=== PATIENT | female | born 1985 | race Caucasian/White ===

== ENCOUNTER 2016-08-23 14:56 | Inpatient (IN) | payer OTHER ==
[~2016-08-23] VITALS: Ht 167.6 cm; Wt 77.5 kg
[2016-08-23] MEDS ORDERED: LACTATED RINGER'S 1000ML 1,000 ML IV SCH (15:02)
[2016-08-23] MEDS ORDERED: LACTATED RINGER'S 1000ML 1,000 ML IV PRN (15:02)
[2016-08-23] MEDS ORDERED: PATIENT'S ALLERGY INFO NEEDS ENTERED SCH (15:15)
[2016-08-23 15:26] LABS: HEMATOCRIT 30.6 % (37-47); MEAN CELL VOLUME 78.1 fL (80-100); MEAN CORPUSCULAR HEMOGLOBIN 24.2 pg (25-34); MEAN PLATELET VOLUME 9.6 fL (7.4-10.4); PLATELET COUNT 280 K/uL (130-400); RED BLOOD COUNT 3.92 M/uL (4.2-5.4); WHITE BLOOD COUNT 9.02 K/uL (4.8-10.8)
[2016-08-23 15:28] VITALS: Ht 167.6 cm; Wt 77.5 kg
[2016-08-23] MEDS ORDERED: ESOM1CAP24 PO (15:31)
[2016-08-23] MEDS ORDERED: PRENTAB26 PO (15:31)
[2016-08-23] MEDS ORDERED: ACET-749 PO (15:31)
[2016-08-23] MEDS ORDERED: FERR1TAB23 PO (15:31)
[2016-08-23] MEDS ORDERED: FENTANYL CITRATE INJ 50 MCG/1 ML 2 ML VIAL ONE (15:39)
[2016-08-23] MEDS ORDERED: EpHEDrine SULFATE INJ 50 MG/ML AMP ONE (15:39)
[2016-08-23] MEDS ORDERED: FENTANYL 2MCG/ML ROPIV 1.25MG/ML 100ML BAG EPI ONE (15:39)
[2016-08-23] MEDS ORDERED: BUPIVACAINE 0.25% 30 ML VIAL ONE (15:39)
[2016-08-23] MEDS ORDERED: NALOXONE HCL INJ 1 MG in SODIUM CHLORIDE 0.9% 1000ML 1,000 ML IV PRN (16:34)
[2016-08-23] MEDS ORDERED: LACTATED RINGER'S 1000ML 500 ML IV PRN ×2 (16:34→16:58)
[2016-08-23] MEDS ORDERED: NALOXONE HCL INJ 0.4 MG/1 ML VIAL/CARP IV PRN (16:45)
[2016-08-23] MEDS ORDERED: NALBUPHINE HCL INJ 10 MG/ML AMP IV PRN (16:45)
[2016-08-23] MEDS ORDERED: FENTANYL 2MCG/ML ROPIV 1.25MG/ML 100ML BAG EPI PRN (16:45)
[2016-08-23] MEDS ORDERED: EpHEDrine SULFATE INJ 50 MG/ML AMP IV PRN (16:45)
[2016-08-23] MEDS ORDERED: ONDANSETRON INJ 2 MG/ML 2 ML VIAL IV PRN (16:45)
[2016-08-23] MEDS ORDERED: DiphenhydrAMINE HCL 50 MG/ML VIAL IV PRN (16:45)
[2016-08-23] MEDS ORDERED: OXYTOCIN 30 UNITS/500ML NSS IV PRN ×2 (17:00→18:45)
[2016-08-23] MEDS ORDERED: ACETAMINOPHEN/CODEINE 300/30MG TAB PO ONE (18:40)
[2016-08-23] MEDS ORDERED: BENZOCAINE 20% AER SPR 82.5 GM CAN EXT PRN (18:45)
[2016-08-23] MEDS ORDERED: RIZATRIPTAN BENZOATE 10 MG TAB PO PRN (18:45)
[2016-08-23] MEDS ORDERED: ACETAMINOPHEN/CODEINE 300/30MG TAB PO PRN (18:45)
[2016-08-23] MEDS ORDERED: LANOLIN OINT EXT PRN ×2 (18:45)
[2016-08-23] MEDS ORDERED: DIPHTHERIA/TETANUS/PERTUSSIS 0.5 ML SYR/VIAL IM. ONE (18:45)
[2016-08-23] MEDS ORDERED: SUPERCREAM 0.870 % 15GM JAR EXT PRN (18:45)
[2016-08-23] MEDS ORDERED: HYDROCORTISONE ACETATE 25 MG SUPP PR PRN (18:45)
[2016-08-23] MEDS ORDERED: ACETAMINOPHEN 325 MG TAB PO PRN (18:45)
--- NOTE | 2016-08-23 19:14 | Anesthesia Procedure Note ---
Anesthesia Epidural Removal Nt Date & Time Aug 23, 2016 at 19:13 Vital Signs Pain Intensity: 8.0 Notes Mental Status: alert / awake / arousable, participated in evaluation Nausea / Vomiting: adequately controlled Pain: adequately controlled Airway Patency, RR, SpO2: stable & adequate BP & HR: stable & adequate Hydration State: stable & adequate Neuraxial Anesthesia: was administered Anesthetic Complications: no major complications apparent, pt satisfied with anesthetic care Epidural: removed without complications, with tip intact
[2016-08-23] MEDS ORDERED: MEASLES, MUMPS & RUBELLA VIRUS VIAL SQ. ONE (20:00)
[2016-08-23 21:00] VITALS: BP 118/73; PULSE 95; TEMP 36.8
[2016-08-23] MEDS: DOCUSATE SODIUM 100 MG CAP PO SCH (21:11)
[2016-08-23] MEDS: IBUPROFEN 600 MG TAB PO PRN (21:16)
[2016-08-23] MEDS: ACETAMINOPHEN/CODEINE 300/30MG TAB PO PRN (22:20)
[2016-08-23 23:00] VITALS: BP 118/69; PULSE 68; TEMP 36.8; O2SAT 97
[2016-08-24] MEDS: IBUPROFEN 600 MG TAB PO PRN ×4 (01:13→19:07)
[2016-08-24 04:40] VITALS: BP 115/82; PULSE 90; TEMP 36.5; O2SAT 98
--- NOTE | 2016-08-24 05:40 | DELIVERY SUMMARY ---
DATE OF OPERATION: 08/23/2016 FINDINGS: Viable male with Apgars of 7 and 9, baby delivered spontaneously over midline second-degree laceration. Placenta delivered spontaneously. Laceration repaired with 4-0 Vicryl in routine fashion. Estimated blood loss 300 mL. LABOR NOTE: The patient is a 30-year-old, 7, para 3, with an EDC of 23 August at 40 weeks' gestational age. She was admitted in active labor. The patient states her contractions began at around 1000 hours on the day of delivery. She denied rupture of membranes or vaginal bleeding. The patient has had a benign course. Blood type is A positive, antibiotic negative, rubella non immune, hepatitis B negative. She declined to quad screen. She had normal 1 hour Glucola x2 and a negative third trimester beta strep culture. Upon admission the patient was 5-6 cm dilated, 80% effaced, -2 station. Tracing was category 2. Anesthesia was consulted and epidural was placed. Two hours later, the patient had no cervical change and contractions had spaced after the epidural. She had artificial rupture of membranes with clear fluid. Pitocin was initiated for the uterine contractions spacing out. Over the next hour, the patient progressed to full dilatation and began her second stage, pushed twice delivering the viable male infant. Cord was clamped and cut. Cord gases, cord blood samples were obtained. Placenta delivered spontaneously. Inspection of the perineum showed a small midline laceration repaired with a running 4-0 Vicryl stitch. Estimated blood loss was 300 mL. Sponge and needle count were correct. I attest to the content of the Intraoperative Record and any orders documented therein. Any exceptio ns are noted below.
[2016-08-24] MEDS: ACETAMINOPHEN/CODEINE 300/30MG TAB PO PRN ×3 (06:35→15:31)
[2016-08-24 07:50] VITALS: BP 107/62; PULSE 82; TEMP 36.7; O2SAT 98
[2016-08-24] MEDS ORDERED: FERROUS SULFATE 325 MG TAB PO SCH (08:00)
[2016-08-24] MEDS ORDERED: PAROXETINE 20 MG TAB PO SCH (08:00)
[2016-08-24] MEDS ORDERED: PRENATAL VITAMIN TAB PO SCH (08:00)
[2016-08-24] MEDS: DOCUSATE SODIUM 100 MG CAP PO SCH (08:41)
--- NOTE | 2016-08-24 09:59 | Progress Note ---
Subjective Aug 24, 2016. Subjective conversation w/ patient, physical exam Diet Tolerance: Regular Diet Feeding Type: Breast Feeding Objective Vital Signs Date Time Temp Pulse Resp B/P Pulse Ox O2 Delivery O2 Flow Rate FiO2 08/24/16 07:50 98 Room Air 08/24/16 07:50 36.7 82 20 107/62 98 Room Air 08/24/16 04:40 36.5 90 20 115/82 98 Room Air 08/23/16 23:00 36.8 68 20 118/69 97 Room Air 08/23/16 23:00 Room Air 08/23/16 21:00 Room Air 08/23/16 21:00 36.8 95 20 118/73 Room Air Physical Exam General Appearance: WELL-APPEARING, NO APPARENT DISTRESS Fundus: Firm, Non-Tender Extremities: no calf tenderness Laboratory Results Last 24 Hours Test 08/23/16 15:16 08/24/16 07:40 White Blood Count 9.02 K/uL Red Blood Count 3.92 M/uL Hemoglobin 9.5 g/dL 8.6 g/dL Hematocrit 30.6 % 28.0 % Mean Corpuscular Volume 78.1 fL Mean Corpuscular Hemoglobin 24.2 pg Mean Corpuscular Hemoglobin Concent 31.0 g/dl RDW Standard Deviation 43.9 fL RDW Coefficient of Variation 15.4 % Platelet Count 280 K/uL Mean Platelet Volume 9.6 fL Assessment and Plan Post- Day#: 1 Continue Routine Care: - doing well - long h/o intractable migraines, managed with Paxil and Maxalt prior to - wishes to restart these medications - desires d/c today at 24 hours - instructions/Rx given - f/u in 6 weeks for check
[2016-08-24] MEDS ORDERED: PXL20 PO (10:01)
[2016-08-24] MEDS ORDERED: MXL10 PO (10:01)
--- NOTE | 2016-08-24 10:03 | Discharge Instructions ---
Discharge Instructions Admission Reason for Admission: Check Labor Discharge Discharge Diagnosis / Problem: same Discharge Goals Goal(s): Routine recovery after delivery Medications Continue Dispensed Medications: supercream, dermaplast, tucks Activity Recommendations Activity Limitations: per Instructions/Follow-up section . Instructions / Follow-Up Instructions / Follow-Up ACTIVITY RECOMMENDATIONS: * Gradual return to full activity over the next 2-3 weeks. * No lifting - nothing heavier than baby over the next 2-3 weeks. * Do not engage in vigorous exercise, sexual activity or sports until cleared by your physician. * Do not drive or operate any motorized equipment until cleared by your physician. * You may shower/bathe daily. MEDICATIONS: For discomfort or pain, you may use Acetaminophen (Tylenol), Ibuprofen (Advil), or Naproxen (Aleve) following the package directions. For constipation you may use Colace following the package directions. BREAST CARE: If you are not breast feeding: * Wear a supportive bra 24 hours a day for one to two weeks. * Avoid stimulating your breasts and nipples as much as possible during the first few weeks after delivery. * When taking a shower, have the warm water hit your back, not breasts. * When your breasts feel full, apply ice packs. Usually three to four times a day helps ease the discomfort. * Take a mild pain medication (Tylenol / Motrin) when you are uncomfortable. If breast feeding: * Use breast milk to lubricate nipples. Lansinoh cream may be used for sore nipples. You do not need to remove cream prior to breast feeding. If using a different brand of cream, check the label for directions regarding removal of cream prior to nursing. * Wear a supportive bra. * If having problems with breasts or breast feeding, call a solutions architect consultant or your health care provider. EPISIOTOMY CARE: After delivery, if you have an episiotomy (stitches), the following steps will ease discomfort and aid healing. * For the first 24 hours after delivery, place ice packs next to your episiotomy to help reduce swelling. * After the first 24 hour-period, sitz baths, either portable or in the tub, are suggested. A shower with a shower arm sprayed over the episiotomy may be comforting. * Althea care should be done after each voiding and bowel movement. Squirt warm water from a plastic bottle over the perineum (region of the body between the anus and urinary opening) and pat dry. * Use Dermoplast to ease discomfort. Shake container. Kincaid directly over the episiotomy. Place a Tucks on a clean sanitary pad next to your episiotomy. SPECIAL CARE INSTRUCTIONS: When you are discharged from the hospital, it is important for you to follow the instructions listed below: * During the first week at home, you should be able to care for yourself and your baby. In addition, the usual light household activities are encouraged. * Limit your activities to the way you feel. Do not try to clean the house or move furniture. Be sensible. * If you actively engage in sports and have done so up until the time of your delivery, you may resume these activities as soon as you feel able. This may take up to one month or even longer. Use good judgment. * Continue to take your vitamins for at least six weeks after the of your baby. * Your diet need not be limited unless you were on a special diet before your delivery. Breast-feeding mothers need around 2500 calories per day and at least 64-80 ounces of fluid per day (8 to 10 glasses). * You should eat foods from the four major food groups. Crash diets or fad diets are to be avoided. Eating lean meats, fresh fruits and vegetables, low-fat dairy products, high fiber foods and a regular exercise program, will help you get back to your pre- weight without putting your health at risk. * Constipation is sometimes a problem after delivery. Take a mild laxative as needed. If breast feeding, Milk of Magnesia is acceptable to use. You may use a suppository or Fleets enema if no episiotomy. * A daily shower or tub bath is suggested. Be sure to thoroughly and gently dry the perineum. * A bloody vaginal discharge will usually continue until around four weeks post . A small amount of bleeding may continue for as long as six weeks. Vaginal discharge changes from the bright red bleeding after delivery to pink then brownish and finally yellowish-pink before becoming white and disappearing. * Bleeding may increase with activity. Your first period may come in 4-8 weeks. If you are breast feeding, your period may be delayed even longer. * [place] (sex) can begin whenever both you and your partner feel comfortable and do not have any form of genital infection. It is recommended that you wait at least six weeks for internal and external healing to occur. If you have questions, please talk to your health care practitioner. A condom should be used to prevent infection and . * Foreplay, gentle intercourse and lubrication is very important the first several times to prevent pain. A water-based lubricant such as K-Y jelly or Astroglide may be used. * If you have RH negative blood and your baby is RH positive, you will receive RHOGAM by injection prior to discharge. The nurse will give you a card to keep with you that has the date and place that you received RHOGAM after delivery. * During your care, you had a Rubella screen done to check for the presence of rubella antibodies in your blood. If your test was negative, you will receive a Rubella vaccine prior to discharge. This vaccine may cause a fever, soreness at the injection site and flu-like symptoms. If these symptoms persist, notify your health care practitioner. is not advised for one month after a Rubella vaccine. * Verbalizes understanding of car seat law as reviewed with patient nursing. * Car Seat hand-out given and reviewed with patient by nursing. * Shaken baby information reviewed with patient by nursing. Call you doctor if: * Heavy bleeding (saturating several pads an hour) or passing clots the size of your fist. * A fever >101 degrees F (38.3 degrees C) on two occasions four hours apart and /or chills. * Unusual pain in the pelvic or vaginal areas. * "Baby Blues" lasting longer than two weeks. If you have any questions or concerns, call your health care practitioner at . FOLLOW UP VISIT: * Please call the office at to schedule a 6 week examination. It is important you keep this appointment. It is important for you to make arrangements for either yearly or twice yearly check-ups thereafter. Current Hospital Diet Patient's current hospital diet: Regular OB Diet Discharge Diet Recommended Diet: Regular Diet Procedures Procedures Performed: Vaginal Delivery Pending Studies Studies pending at discharge: no Medical Emergencies . Who to Call and When: Medical Emergencies: If at any time you feel your situation is an emergency, please call 911 immediately. . Non-Emergent Contact Non-Emergency issues call your: Primary Care Provider, Filtering Machine Tender Helper Call Non-Emergent contact if: you have a fever, temperature is above 100.5 . . "Provider Documentation" section prepared by Marcial Souza. VTE Core Measure Inpt VTE Proph given/why not?: Treatment not indicated
[2016-08-24 11:35] VITALS: BP 129/81; PULSE 85; TEMP 36.4; O2SAT 100
[2016-08-24 15:00] VITALS: BP 114/74; PULSE 74; TEMP 36.6
[2016-08-24 16:36] VITALS: BP_DIAS 74; PULSE 74; TEMP 36.6
[2016-08-24] MEDS ORDERED: BISACODYL 5 MG TABEC PO SCH (20:00)
== END 2016-08-24 19:23 | disposition home or self-care (01) | DRG 775 ==
LOC: C.OPB 14:56 → C.LD 14:57 → C.OPB 15:03 → C.OBG 20:47
PROVIDERS: ADMIT Obstetrics & Gynecology; ATTEND Obstetrics & Gynecology
PROC: 0WQNXZZ Repair Female Perineum, External Approach (ICD-10-PCS; principal; 2016-08-23)
PROC: 10E0XZZ Delivery of Products of Conception, External Approach (ICD-10-PCS; principal; 2016-08-23)
DX: O70.1 Second degree perineal laceration during delivery (principal); Z3A.40 40 weeks gestation of pregnancy; Z37.0 Single live birth

== ENCOUNTER → 2016-11-25 | Outpatient (CLI) | payer OTHER ==
[~2016-11-25] MED LIST: ACET-749 PO; ESOM1CAP24 PO; FERR1TAB23 PO; PRENTAB26 PO; PXL20 PO; RIZA10TA21 PO
[2016-11-27 01:17] LABS: CHLAMYDIA TRACH RNA*** NOT DETECTED (NOT DETECTED); GC (NEIS GONORRHOEAE)RNA** NOT DETECTED (NOT DETECTED)
== END | disposition home or self-care (01) ==
LOC: C.LABSPEC 12:06
PROVIDERS: ATTEND Physician Assistant
DX: Z30.430 Encounter for insertion of intrauterine contraceptive device (principal)